=== PATIENT | male | born 1950 | race Caucasian/White ===

== ENCOUNTER → 2016-11-13 | Outpatient (CLI) | payer BC, OTHER ==
[~2016-11-13] VITALS: Ht 171.5 cm; Wt 80.8 kg
[~2016-11-13] MED LIST: AMLO-110 PO; ASPI81TA28 PO; CLC100X PO; FLM4 PO; NTRC PO; NUTR1CAP PO; RANI300T2 PO; [UNRECOGNIZED DRUG - CODE] PO
[2016-11-13 13:33] VITALS: BP 118/72; PULSE 89; Ht 171.5 cm; Wt 80.8 kg
== END | disposition home or self-care (01) ==
LOC: C.NEUR 13:23
PROVIDERS: ATTEND Internal Medicine Pulmonary Disease
DX: G47.33 Obstructive sleep apnea (adult) (pediatric) (principal); Z99.89 Dependence on other enabling machines and devices

== ENCOUNTER → 2016-11-27 | Outpatient (CLI) | payer BC ==
[2016-11-27 10:01] LABS: ESTIMATED AVERAGE GLUCOSE 120 mg/dl; HA1C FLAG Normal (Normal)
[2016-11-27 10:09] LABS: ALB/GLOB RATIO 0.9 (0.9-2); ALKALINE PHOSPHATASE 93 U/L (45-117); ALT/SGPT 44 U/L (12-78); AST/SGOT 23 U/L (15-37); BLOOD UREA NITROGEN 19 mg/dl (7-18); BUN/CREATININE RATIO 18.7 (10-20); CALCIUM 9.1 mg/dl (8.5-10.1); CARBON DIOXIDE 27 mmol/L (21-32); CHLORIDE 105 mmol/L (98-107); CHOLESTEROL 182 mg/dl (0-200); CHOLESTEROL/HDL RATIO 2.8; GLUCOSE 85 mg/dl (70-99); HDL CHOLESTEROL 64 mg/dl; LDL CHOLESTEROL CALCULATED 92 mg/dl; POTASSIUM 3.9 mmol/L (3.5-5.1); SODIUM 139 mmol/L (136-145); TRIGLYCERIDES 131 mg/dl (0-150); VERY LOW DENSITY LIPOPROT CALC 26 mg/dl
[2016-11-27 10:21] LABS: FREE PSA 0.63 ng/ml
== END | disposition home or self-care (01) ==
LOC: C.LAB1850 07:26
PROVIDERS: ATTEND Internal Medicine
DX: E78.00 Pure hypercholesterolemia, unspecified (principal); R74.8 Abnormal levels of other serum enzymes; R97.20 Elevated prostate specific antigen [PSA]; R73.9 Hyperglycemia, unspecified

== ENCOUNTER → 2017-04-30 | Outpatient (CLI) | payer BC ==
[2017-04-30 09:47] LABS: MEAN CELL VOLUME 90.7 fL (80-100); MEAN CORPUSCULAR HEMOGLOBIN 30.8 pg (25-34); MEAN PLATELET VOLUME 10.6 fL (7.4-10.4); PLATELET COUNT 221 K/uL (130-400); RED BLOOD COUNT 4.96 M/uL (4.7-6.1); WHITE BLOOD COUNT 6.14 K/uL (4.8-10.8)
[2017-04-30 10:06] LABS: ALT/SGPT 42 U/L (12-78); BLOOD UREA NITROGEN 17 mg/dl (7-18); BUN/CREATININE RATIO 17.2 (10-20); CALCIUM 8.9 mg/dl (8.5-10.1); CARBON DIOXIDE 29 mmol/L (21-32); CHLORIDE 105 mmol/L (98-107); CHOLESTEROL 192 mg/dl (0-200); GLUCOSE 87 mg/dl (70-99); POTASSIUM 3.7 mmol/L (3.5-5.1); SODIUM 138 mmol/L (136-145); TRIGLYCERIDES 128 mg/dl (0-150); VERY LOW DENSITY LIPOPROT CALC 26 mg/dl
[2017-04-30 10:09] LABS: ALB/GLOB RATIO 0.9 (0.9-2); ALKALINE PHOSPHATASE 78 U/L (45-117); AST/SGOT 27 U/L (15-37); HDL CHOLESTEROL 65 mg/dl; LDL CHOLESTEROL CALCULATED 101 mg/dl
== END | disposition home or self-care (01) ==
LOC: C.LAB1850 07:08
PROVIDERS: ATTEND Internal Medicine
DX: R74.8 Abnormal levels of other serum enzymes (principal); E78.00 Pure hypercholesterolemia, unspecified

== ENCOUNTER → 2017-10-11 | Outpatient (CLI) | payer BC ==
[2017-10-11 09:36] LABS: HEMATOCRIT 48.3 % (42-52); HEMOGLOBIN 16.6 g/dL (14.0-18.0); MEAN CELL VOLUME 90.4 fL (80-100); MEAN CORPUSCULAR HEMOGLOBIN 31.1 pg (25-34); MEAN CORPUSCULAR HGB CONC 34.4 g/dl (32-36); MEAN PLATELET VOLUME 10.3 fL (7.4-10.4); PLATELET COUNT 204 K/uL (130-400); RED CELL DISTRIBUTION WIDTH SD 43.4 fL (36.4-46.3); WHITE BLOOD COUNT 6.03 K/uL (4.8-10.8)
[2017-10-11 10:03] LABS: ALBUMIN 3.4 gm/dl (3.4-5.0); ALT/SGPT 38 U/L (12-78); BLOOD UREA NITROGEN 19 mg/dl (7-18); CALCIUM 9.4 mg/dl (8.5-10.1); CARBON DIOXIDE 27 mmol/L (21-32); CREATININE 1.01 mg/dl (0.60-1.40); GLUCOSE 89 mg/dl (70-99); POTASSIUM 3.9 mmol/L (3.5-5.1); SODIUM 137 mmol/L (136-145)
[2017-10-11 10:06] LABS: ALKALINE PHOSPHATASE 70 U/L (45-117); AST/SGOT 23 U/L (15-37); TOTAL PROTEIN 7.3 gm/dl (6.4-8.2)
== END | disposition home or self-care (01) ==
LOC: C.LAB1850 07:32
PROVIDERS: ATTEND Internal Medicine
DX: R73.9 Hyperglycemia, unspecified (principal); R74.8 Abnormal levels of other serum enzymes; R97.20 Elevated prostate specific antigen [PSA]

== ENCOUNTER → 2018-02-07 | Outpatient (CLI) | payer BC ==
[~2018-02-07] MED LIST changes: -AMLO-110 PO; +AMLO5TAB3 PO
[2018-02-07 09:35] LABS: HEMATOCRIT 46.3 % (42-52); HEMOGLOBIN 15.8 g/dL (14.0-18.0); MEAN CORPUSCULAR HGB CONC 34.1 g/dl (32-36); MEAN PLATELET VOLUME 10.6 fL (7.4-10.4); PLATELET COUNT 215 K/uL (130-400); RED CELL DISTRIBUTION WIDTH CV 13.1 % (11.5-14.5); RED CELL DISTRIBUTION WIDTH SD 43.6 fL (36.4-46.3)
[2018-02-07 09:55] LABS: ALBUMIN 3.4 gm/dl (3.4-5.0); ALKALINE PHOSPHATASE 71 U/L (45-117); ALT/SGPT 43 U/L (12-78); AST/SGOT 27 U/L (15-37); BLOOD UREA NITROGEN 18 mg/dl (7-18); CALCIUM 8.8 mg/dl (8.5-10.1); CARBON DIOXIDE 28 mmol/L (21-32); CHOLESTEROL 188 mg/dl (0-200); CREATININE 1.04 mg/dl (0.60-1.40); GLUCOSE 90 mg/dl (70-99); LDL CHOLESTEROL CALCULATED 112 mg/dl; POTASSIUM 4.1 mmol/L (3.5-5.1); SODIUM 141 mmol/L (136-145)
== END | disposition home or self-care (01) ==
LOC: C.LAB1850 07:23
PROVIDERS: ATTEND Internal Medicine
DX: E78.00 Pure hypercholesterolemia, unspecified (principal); K75.81 Nonalcoholic steatohepatitis (NASH)

== ENCOUNTER 2023-01-06 03:13 | Inpatient (IN) ==
[2023-01-06 04:01] LABS: Basophils # (auto) 0.04 K/uL (0-0.2); Basophils % (auto) 0.5 %; Eosinophils # (auto) 0.06 K/uL (0-0.50); Eosinophils % (auto) 0.8 %; Hematocrit (blood only) 43.3 % (42.0-52.0); Hemoglobin 15.2 g/dl (14.0-18.0); Immature Granulocytes # (auto) 0.02 K/uL (0.01-0.20); Immature Granulocytes % (auto) 0.3 %; Lymphocytes # (auto) 2.15 K/uL (1.2-3.4); Lymphocytes % (auto) 29.1 %; Mean Corpuscular Hemoglobin 32.1 pg (25.0-34.0); Mean Corpuscular Hgb Conc 35.1 g/dL (32.0-36.0); Mean Corpuscular Volume 91.4 fL (80.0-100.0); Mean Platelet Volume 10.4 fL (9.4-12.4); Monocytes % (auto) 8.1 %; Neutrophils # (auto) 4.53 K/uL (1.40-6.50); Neutrophils % (auto) 61.2 %; Platelet Count 232 K/uL (130-400); RDW Coefficient of Variation 12.7 % (11.5-14.5); RDW Standard Deviation 42.6 fL (36.4-46.3); Red Blood Count 4.74 M/uL (4.70-6.10)
[2023-01-06 04:05] LABS: Albumin Globulin Ratio 1.4 (0.9-2); Albumin Level 3.9 gm/dl (3.4-5.0); BUN Creatinine Ratio 38.6 (10-20); Bilirubin,Total 0.8 mg/dl (0.2-1.0); Calcium 9.5 mg/dl (8.6-10.3); Creatinine Clr Calc Pharmacy 53.2 ml/min; Globulin 2.8 gm/dl (2.5-4.0); Magnesium 1.8 mg/dl (1.7-2.4); Potassium 4.2 mmol/L (3.5-5.1); Total Protein 6.7 gm/dl (6.0-8.3)
--- NOTE | 2023-01-06 04:05 | Emergency Department Note ---
Impression & Plan Lightheadedness, Syncope, CHI (closed head injury), Fracture closed, nasal bone, Premature ventricular contractions (PVCs) (VPCs) ED Provider Note ED Provider Note NAME: FLORY SCHAFER AGE:72 SEX: Male : 1950 ARRIVES VIA: EMS INFORMANT: Patient ED PROVIDER(s): Annalisa Silverio DO CHIEF COMPLAINT: Lightheadedness HPI: This is a 72-year-old male presents emerged department via EMS after several episodes of lightheadedness while at home. Patient states he was slightly lightheaded this evening with a heaviness to his arms and legs after walking. He states he went to bed and got up to use the restroom and felt lig htheaded when he got up. He states he was going back into bed after urinating and felt very lightheaded again and fell against the wall injuring his face. He does believe he broke his nose. He states there was a lot of blood from this and he took some time to clean it up. After that he still felt lightheaded trying to go back into bed. When he tried to get up again he felt persistently lightheaded and felt he should come in for evaluation so he woke up his and called 911. Patient states even when 911 arrived he was still having episodes of lightheadedness and had a very brief LOC with 1 episode although stated he did not fall. He denies any preceding or accompanying chest pain, palpitations, shortness of breath, nausea, headaches, vision changes, or paresthesias. Patient states he was recently seen and evaluated here for indigestion and was told he may have a duodenal ulcer. He states he has follow-up scheduled with GI next week. He states it was thought to be related to his recent use of naproxen for an ongoing shoulder issue. He states he has not had any naproxen since Sunday when he was evaluated. He denies any change in urine or stools. PAST MEDICAL HISTORY:See Below PAST SURGICAL HISTORY:See Below FAMILY HISTORY:See Below SOCIAL HISTORY:See Below HOME MEDICATIONS:See Below ALLERGIES:See Below VITALS:See Below PHYSICAL EXAMINATION: GENERAL: alert, well appearing, well nourished, no distress, non-toxic EYE EXAM: normal conjunctiva, PERRL and EOM's grossly intact OROPHARYNX: no exudate, no erythema, lips, buccal mucosa, and tongue normal and mucous membranes are dry NECK: supple, no nuchal rigidity, no adenopathy, non-tender LUNGS: Clear to auscultation. Normal chest wall mechanics, no w/r/r HEART: no murmurs, S1 normal and S2 normal ABDOMEN: abdomen soft, non-tender, normo-active bowel sounds, no masses, no rebound or guarding. BACK: Back is symmetrical on inspection and there is no deformity, no midline tenderness, no CVA tenderness. SKIN: no rashes, petechiae, orbruising UPPER EXTREMITIES: upper extremities are grossly normal. FROM, nml pulses b/l. LOWER EXTREMITIES: No pitting edema. FROM, nml pulses b/l. NEURO EXAM: Normal sensorium, cranial nerves II-XII grossly intact, normal speech, no facial droop,nogross weakness of arms, no gross weakness of legs. Gross sensation intact. No ataxia. Vital Signs: reviewed and remarkable Differential Diagnosis: Vasovagal syncope, hypovolemia, BRIDGET, dysrhythmia, electrolyte abnormality, ACS, occult infection, CVA, ICH, as well as others were considered MEDICAL DECISION MAKING: THis is a 72 yo male who presents to the ER after recurrent episodes of lightheadedness at home and a syncopal event. VS stable and patient afebrile. Labs drawn and sent, IV established, EKG and CXR performed and interpreted at bedside, and patient placed on telemetry. Patient with frequent PVC's on tele. IVF started due to concern for dehydration. Patient sent for CT imaging given concern for neurologic etiology as well as reported head trauma. Labs and imaging reassuring. Patient was still orthostatic on check after 1 L IVF. No prior cardiac hx. Neuro exam otherwise normal and nonfocal. In discussing recent evaluation and dx of duodenitis here thought to be related to NSAID use, today's H/H 2 gm/dL lower than <24 hr ago. A protonix drip was added to the initial bolus he was given and a repeat H/H added. He denied black/bloody stools and no use of anticoagulation. DUe to concern for persistent symptoms, advanced age, case discussed with the hospitalist for additional evaluatio n/treatment. Per their request, case also discussed with [facility]. Consultation(s): 814: Discussed with Dr. Meza. He requested repeat H/H and repeat troponin and that GI be consulted additionally. 0928: Discussed with Dr. Pritchett. ER Treatment Provided: See below Diagnostics Interpreted By Me: -ECG: Normal sinus at 78, normal axis, normal intervals, PVCs noted, ST depression noted in V5 and V6, no other ST or T wave changes -Cardiac Monitoring: An order was placed for continuous cardiac monitoring. The monitor shows a rate of 70 with normal sinus rhythm. -Laboratory studies: As stated above and show below. -Imaging studies: X-ray Chest: A single view study of the chest was reviewed and was negative for cardiomegaly, focal infiltrate, effusion, pulmonary edema, or wide mediastinum. Triage Nursing Note Reviewed Prior/Outside Records Reviewed Procedures: [] Critical Care: Critical care of 44 min performed to assess and manage high likelihood of life- threatening syncope, involving labs and imaging performed with assessment to evaluate syncope diagnosis] with frequent reassessment. This time includes bedside time, treatment discussions with patient/family/consultants, documentation time and excludes procedure time. Past Med/Surg History Medical History Anxiety BPH (benign prostatic hyperplasia) BPH with obstruction/lower urinary tract symptoms Elevated serum GGT level per pt Gallstones History of colon polyps Hypertension Neck pain HX STIFFNESS TO LEFT SIDE Osteoarthritis Pancreatitis hx of Sleep apnea cpap Surgical History History of cholecystectomy History of colonoscopy History of prostate biopsy x2--benign History of tonsillectomy and adenoidectomy History of tooth extraction History of wisdom tooth extraction Family History Grandmother (Maternal) Family history of diabetes mellitus Aunt Family history of diabetes mellitus Family/Other Cancer Hypertension Father Prostate cancer Other No family history of adverse response to anesthesia Social History Smoking Status: Never smoker Second Hand Exposure: No; Do You Dip or Chew Tobacco: No; Hx Alcohol Use: Yes Alcohol type: wine Hx Substance Use: No Preferred Language: Burkinan Communication Ability: Effective Mounter Saxophones Required: No Beliefs That Will Affect Care: None marital status: Current Living Situation: Spouse current occupational status: retired Other Information That Helps Us Care for You: No Feels Safe at Home: Yes Safety Concerns: Feels Safe At This Time Childhood Exposure to Second-Hand Smoke: Yes Dental Care, Regularly: Yes Physical Activity Frequency: Daily Seatbelt Use: always Sunscreen Use: Yes Assistive Devices: CPAP and Glasses Allergies Allergies Allergy/AdvReac Type Severity Reaction Status Date / Time No Known Allergies Allergy Verified 12/14/22 09:51 Home Meds Home Medications Medication Instructions Recorded Confirmed aspirin 81 mg tablet,delayed 81 mg PO HS 12/25/18 01/06/23 release coenzyme Q10 100 mg capsule 100 mg PO BID 12/25/18 01/06/23 docusate sodium 100 mg capsule 200 mg PO HS 12/25/18 01/06/23 omega-3 acid ethyl esters 1 gram 1 g PO BID 12/25/18 01/06/23 capsule loratadine 10 mg tablet (Claritin) 10 mg PO DAILY PRN sinus issues 12/26/18 01/06/23 psyllium husk 0.52 gram capsule 2.6 g PO HS 12/26/18 01/06/23 (Fiber-Caps (psyllium husk)) cholecalciferol (vitamin D3) 125 125 mcg PO QAM 12/13/21 01/06/23 mcg (5,000 unit) capsule Previous Rx's Medication Instructions Recorded CPAP Machine #1 ea 03/13/20 lorazepam 0.5 mg tablet 0.5 - 1 mg PO BID PRN Anxiety #30 02/22/22 tabs amlodipine 2.5 mg tablet 2.5 mg PO QAM #90 tabs 12/05/22 dutasteride 0.5 mg capsule 0.5 mg PO DAILY #90 caps 12/05/22 tamsulosin 0.4 mg capsule 0.4 mg PO DAILY #90 caps 12/14/22 Results & Data (ED) Vital Signs Vital Signs - 24 hr 01/06/23 03:21 01/06/23 03:28 01/06/23 03:30 Temperature 37.0 C Temperature Source Oral Pulse Rate - Lying Pulse Rate - Sitting Pulse Rate - Standing Pulse Rate 68 71 68 Pulse Rate [Left Finger] Pulse Rate from SpO2 Sensor 63 Respiratory Rate 18 18 Blood Pressure - Lying Blood Pressure - Sitting Blood Pressure- Standing Blood Pressure 124/76 124/76 Blood Pressure [Left Arm] Blood Pressure Mean 92 92 Blood Pressure Mean [Left Arm] Pulse Oximetry 100 100 Oxygen Delivery Method Room Air Sepsis Recent Fever Within 48 Hours No Sepsis New/Unexplained Change in Mental Status No Sepsis Action Taken by Nursing No Action Required 01/06/23 04:00 01/06/23 04:33 01/06/23 04:49 Temperature Temperature Source Pulse Rate - Lying Pulse Rate - Sitting Pulse Rate - Standing Pulse Rate 71 68 67 Pulse Rate [Left Finger] Pulse Rate from SpO2 Sensor 63 62 62 Respiratory Rate 16 18 20 Blood Pressure - Lying Blood Pressure - Sitting Blood Pressure- Standing Blood Pressure 128/66 133/73 Blood Pressure [Left Arm] Blood Pressure Mean 86 93 Blood Pressure Mean [Left Arm] Pulse Oximetry 95 96 98 Oxygen Delivery Method Sepsis Recent Fever Within 48 Hours Sepsis New/Unexplained Change in Mental Status Sepsis Action Taken by Nursing 01/06/23 05:00 01/06/23 05:00 01/06/23 05:30 Temperature Temperature Source Pulse Rate - Lying Pulse Rate - Sitting Pulse Rate - Standing Pulse Rate 64 68 Pulse Rate [Left Finger] Pulse Rate from SpO2 Sensor 59 L 62 Respiratory Rate 19 22 Blood Pressure - Lying Blood Pressure - Sitting Blood Pressure- Standing Blood Pressure 128/61 131/65 Blood Pressure [Left Arm] Blood Pressure Mean 83 87 Blood Pressure Mean [Left Arm] Pulse Oximetry 94 93 Oxygen Delivery Method Sepsis Recent Fever Within 48 Hours Sepsis New/Unexplained Change in Mental Status Sepsis Action Taken by Nursing 01/06/23 06:00 01/06/23 06:48 01/06/23 06:30 Temperature Temperature Source Pulse Rate - Lying 69 Pulse Rate - Sitting 71 Pulse Rate - Standing 78 Pulse Rate 71 Pulse Rate [Left Finger] Pulse Rate from SpO2 Sensor 58 L Respiratory Rate 24 Blood Pressure - Lying 130/74 Blood Pressure - Sitting 132/66 Blood Pressure- Standing 86/52 L Blood Pressure 135/63 134/75 Blood Pressure [Left Arm] Blood Pressure Mean 87 94 Blood Pressure Mean [Left Arm] Pulse Oximetry 93 Oxygen Delivery Method Sepsis Recent Fever Within 48 Hours Sepsis New/Unexplained Change in Mental Status Sepsis Action Taken by Nursing 01/06/23 06:30 01/06/23 06:32 01/06/23 06:32 Temperature Temperature Source Pulse Rate - Lying Pulse Rate - Sitting Pulse Rate - Standing Pulse Rate 68 72 Pulse Rate [Left Finger] Pulse Rate from SpO2 Sensor 61 62 Respiratory Rate 23 15 Blood Pressure - Lying Blood Pressure - Sitting Blood Pressure- Standing Blood Pressure 130/74 Blood Pressure [Left Arm] Blood Pressure Mean 92 Blood Pressure Mean [Left Arm] Pulse Oximetry 95 96 Oxygen Delivery Method Sepsis Recent Fever Within 48 Hours Sepsis New/Unexplained Change in Mental Status Sepsis Action Taken by Nursing 01/06/23 06:33 01/06/23 06:34 01/06/23 06:58 Temperature Temperature Source Pulse Rate - Lying Pulse Rate - Sitting Pulse Rate - Standing Pulse Rate 68 75 Pulse Rate [Left Finger] 78 Pulse Rate from SpO2 Sensor 63 Respiratory Rate 20 18 20 Blood Pressure - Lying Blood Pressure - Sitting Blood Pressure- Standing Blood Pressure 132/66 86/52 L Blood Pressure [Left Arm] 153/75 H Blood Pressure Mean 88 63 Blood Pressure Mean [Left Arm] 101 Pulse Oximetry 96 95 Oxygen Delivery Method Room Air Sepsis Recent Fever Within 48 Hours Sepsis New/Unexplained Change in Mental Status Sepsis Action Taken by Nursing 01/06/23 07:17 01/06/23 06:53 01/06/23 06:53 Temperature Temperature Source Pulse Rate - Lying Pulse Rate - Sitting Pulse Rate - Standing Pulse Rate 69 71 Pulse Rate [Left Finger] Pulse Rate from SpO2 Sensor 62 Respiratory Rate 20 Blood Pressure - Lying Blood Pressure - Sitting Blood Pressure- Standing Blood Pressure 153/73 H Blood Pressure [Left Arm] Blood Pressure Mean 99 Blood Pressure Mean [Left Arm] Pulse Oximetry 96 Oxygen Delivery Method Sepsis Recent Fever Within 48 Hours Sepsis New/Unexplained Change in Mental Status Sepsis Action Taken by Nursing 01/06/23 07:00 01/06/23 07:00 01/06/23 07:30 Temperature Temperature Source Pulse Rate - Lying Pulse Rate - Sitting Pulse Rate - Standing Pulse Rate 66 Pulse Rate [Left Finger] Pulse Rate from SpO2 Sensor 59 L Respiratory Rate 17 Blood Pressure - Lying Blood Pressure - Sitting Blood Pressure- Standing Blood Pressure 166/66 H 138/67 Blood Pressure [Left Arm] Blood Pressure Mean 99 90 Blood Pressure Mean [Left Arm] Pulse Oximetry 95 Oxygen Delivery Method Sepsis Recent Fever Within 48 Hours Sepsis New/Unexplained Change in Mental Status Sepsis Action Taken by Nursing 01/06/23 07:30 01/06/23 08:00 01/06/23 08:00 Temperature Temperature Source Pulse Rate - Lying Pulse Rate - Sitting Pulse Rate - Standing Pulse Rate 67 70 Pulse Rate [Left Finger] Pulse Rate from SpO2 Sensor 71 71 Respiratory Rate 22 16 Blood Pressure - Lying Blood Pressure - Sitting Blood Pressure- Standing Blood Pressure 136/81 Blood Pressure [Left Arm] Blood Pressure Mean 99 Blood Pressure Mean [Left Arm] Pulse Oximetry 94 97 Oxygen Delivery Method Sepsis Recent Fever Within 48 Hours Sepsis New/Unexplained Change in Mental Status Sepsis Action Taken by Nursing Laboratory Data 01/06/23 03:25 01/06/23 03:25 Lab Results 01/06/23 01/06/23 01/06/23 Range/Units 03:25 03:25 03:25 WBC 7.40 (4.8-10.8) K/ul RBC 4.74 (4.70-6.10) M/uL Hgb 15.2 (14.0-18.0) g/dl Hct 43.3 (42.0-52.0) % MCV 91.4 (80.0-100.0) fL MCH 32.1 (25.0-34.0) pg MCHC 35.1 (32.0-36.0) g/dL RDW Std Deviation 42.6 (36.4-46.3) fL RDW Coeff of Lynne 12.7 (11.5-14.5) % Plt Count 232 (130-400) K/uL MPV 10.4 (9.4-12.4) fL Immature Gran % (Auto) 0.3 % Neut % (Auto) 61.2 % Lymph % (Auto) 29.1 % Ada % (Auto) 8.1 % Eos % (Auto) 0.8 % Baso % (Auto) 0.5 % Neut # (Auto) 4.53 (1.40-6.50) K/uL Lymph # (Auto) 2.15 (1.2-3.4) K/uL Ada # (Auto) 0.60 H (0.11-0.59) K/uL Eos # (Auto) 0.06 (0-0.50) K/uL Baso # (Auto) 0.04 (0-0.2) K/uL Immature Gran # (Auto) 0.02 (0.01-0.20) K/uL Sodium 136 (136-145) mmol/L Potassium 4.2 (3.5-5.1) mmol/L Chloride 105 (98-107) mmol/L Carbon Dioxide 22 (21-32) mmol/L Anion Gap 9 (3-11) BUN 44 H (6-23) mg/dl Creatinine 1.14 (0.6-1.4) mg/dl Est Cr Clr Drug Dosing 53.2 ml/min Est GFR ( Amer) 73.0 ml/min Est GFR (Non-Af Amer) 63.0 ml/min BUN/Creatinine Ratio 38.6 H (10-20) Glucose 133 H (70-99(Fasting)) mg/dl Calcium 9.5 (8.6-10.3) mg/dl Magnesium 1.8 (1.7-2.4) mg/dl Total Bilirubin 0.8 (0.2-1.0) mg/dl AST 14 (13-39) U/L ALT 13 (7-52) U/L Alkaline Phosphatase 46 (34-104) U/L Troponin I High Sens 17.2 D (0-20) pg/ml Total Protein 6.7 (6.0-8.3) gm/dl Albumin 3.9 (3.4-5.0) gm/dl Globulin 2.8 (2.5-4.0) gm/dl Albumin/Globulin Ratio 1.4 (0.9-2) TSH 4.503 H (0.300-4.500) uIu/ml Free T4 1.01 (0.61-1.60) ng/dl Lyme Disease IgG Ab (Negative) Lyme Disease IgM Ab (Negative) 01/06/23 Range/Units 03:25 WBC (4.8-10.8) K/ul RBC (4.70-6.10) M/uL Hgb (14.0-18.0) g/dl Hct (42.0-52.0) % MCV (80.0-100.0) fL MCH (25.0-34.0) pg MCHC (32.0-36.0) g/dL RDW Std Deviation (36.4-46.3) fL RDW Coeff of Lynne (11.5-14.5) % Plt Count (130-400) K/uL MPV (9.4-12.4) fL Immature Gran % (Auto) % Neut % (Auto) % Lymph % (Auto) % Ada % (Auto) % Eos % (Auto) % Baso % (Auto) % Neut # (Auto) (1.40-6.50) K/uL Lymph # (Auto) (1.2-3.4) K/uL Ada # (Auto) (0.11-0.59) K/uL Eos # (Auto) (0-0.50) K/uL Baso # (Auto) (0-0.2) K/uL Immature Gran # (Auto) (0.01-0.20) K/uL Sodium (136-145) mmol/L Potassium (3.5-5.1) mmol/L Chloride (98-107) mmol/L Carbon Dioxide (21-32) mmol/L Anion Gap (3-11) BUN (6-23) mg/dl Creatinine (0.6-1.4) mg/dl Est Cr Clr Drug Dosing ml/min Est GFR ( Amer) ml/min Est GFR (Non-Af Amer) ml/min BUN/Creatinine Ratio (10-20) Glucose (70-99(Fasting)) mg/dl Calcium (8.6-10.3) mg/dl Magnesium (1.7-2.4) mg/dl Total Bilirubin (0.2-1.0) mg/dl AST (13-39) U/L ALT (7-52) U/L Alkaline Phosphatase (34-104) U/L Troponin I High Sens (0-20) pg/ml Total Protein (6.0-8.3) gm/dl Albumin (3.4-5.0) gm/dl Globulin (2.5-4.0) gm/dl Albumin/Globulin Ratio (0.9-2) TSH (0.300-4.500) uIu/ml Free T4 (0.61-1.60) ng/dl Lyme Disease IgG Ab Negative (Negative) Lyme Disease IgM Ab Negative (Negative) Administered Medications Sodium Chloride (Nss 1000ml) 1,000 mls @ 125 mls/hr IV .Q8H ELIZABETH Stop: 02/05/23 03:44 Last Admin: 01/06/23 20:35 Dose: 125 mls/hr Documented By: Infusion: 01/06/23 20:30 Dose: 125 mls/hr Documented By: Admin: 01/06/23 14:00 Dose: 125 mls/hr Documented By: Infusion: 01/06/23 14:00 Dose: 125 mls/hr Documented By: Infusion: 01/06/23 11:07 Dose: 125 mls/hr Documented By: Infusion: 01/06/23 06:54 Dose: 0 mls/hr Documented By: Admin: 01/06/23 04:08 Dose: 125 mls/hr Documented By: VILMA Pantoprazole Sodium 40 mg/ (Dextrose) 100 mls @ 20 mls/hr IV Q5H ELIZABETH Stop: 02/05/23 15:59 Last Admin: 01/06/23 21:20 Dose: 8 mg/hr, 20 mls/hr Documented By: Infusion: 01/06/23 20:57 Dose: 8 mg/hr, 20 mls/hr Documented By: Admin: 01/06/23 15:57 Dose: 8 mg/hr, 20 mls/hr Documented By: CLEO Discontinued Medications Sodium Chloride (Nss) 500 mls @ 999 mls/hr IV .Q31M ONE Stop: 01/06/23 07:23 Last Infusion: 01/06/23 07:31 Dose: 0 mls/hr Documented By: Admin: 01/06/23 07:00 Dose: 999 mls/hr Documented By: TAVARES Pantoprazole Sodium 40 mg/ (Syringe) 10 mls @ 5 mls/min IV NOW ONE Stop: 01/06/23 06:54 Last Admin: 01/06/23 07:32 Dose: 5 mls/min Documented By: TAVARES Pantoprazole Sodium 40 mg/ (Dextrose) 100 mls @ 20 mls/hr IV Q5H [facility] Stop: 01/06/23 15:59 Last Admin: 01/06/23 15:58 Dose: Not Given Documented By: Infusion: 01/06/23 15:57 Dose: 0 mg/hr, 0 mls/hr Documented By: Admin: 01/06/23 11:08 Dose: 8 mg/hr, 20 mls/hr Documented By: LISSY Ioversol (Optiray 320 125ml) 120 ml IV ONCE ONE Stop: 01/06/23 04:25 Last Admin: 01/06/23 04:25 Dose: 120 ml Documented By: AW Imaging Data Radiologist's Impression: Chest X-Ray 01/06/23 03:43 SINGLE VIEW CHEST CLINICAL HISTORY: Syncope FINDINGS: An AP, portable, upright chest radiograph is compared to study dated 06/27/2018. The heart is enlarged note atherosclerotic calcification of the thoracic aorta. The pulmonary vasculature is nondistended congested. Chronic interstitial thickening is similar to previous. The lungs and pleural spaces are clear. No pneumothorax is seen. The skeletal structures are osteopenic. The bony thorax is grossly intact. IMPRESSION: Cardiomegaly with no active disease in the chest. ACT 112: Negative or not required by law. Electronically signed by: Sachin Whitmore M.D. 01/06/2023 8:[address] 01/06/23 03:43 Exam(s): CT FACIAL Without Contrast EXAM: CT Maxillofacial Without Intravenous Contrast CLINICAL HISTORY: Reason for exam: trauma. TECHNIQUE: Axial computed tomography images of the face without intravenous contrast. Automated exposure control was utilized for the study. A dose lowering technique was utilized adhering to the principles of ALARA. COMPARISON: No relevant prior studies available. FINDINGS: Bones/joints: No acute fracture. Chronic appearing nondisplaced nasal bone fracture on the left. Normal variant torus mandibularis. Soft tissues: Unremarkable. Orbits: Unremarkable. Sinuses: Unremarkable. No air-fluid levels. Dental: Streak artifact from dental amalgam limits evaluation of the adjacent structures. IMPRESSION: No acute facial bone fracture. Chronic appearing nondisplaced nasal bone fracture on the left. Electronically signed by: Gamal Merritt M.D. 01/06/23 07:[address] 01/06/23 03:[address] OF THE BRAIN; CT ANGIOGRAM OF THE BRAIN; CT ANGIOGRAM OF THE NECK CLINICAL HISTORY: Syncope. COMPARISON STUDY: No priors. TECHNIQUE: Unenhanced axial CT scan of the brain is performed. Subsequently, following the IV administration of 120 of Optiray 320, CT angiogram of the head and neck was performed from the aortic arch to the vertex. Images are reviewed in the axial, sagittal, and coronal planes. 3-D MIPS images are created and assessed. IV contrast was administered without complication. All measurements were calculated based on NASCET criteria. A dose lowering technique was utilized adhering to the principles of ALARA. FINDINGS: Brain parenchyma: There is age-related involutional change noting minimal john roangiopathic disease. There is no hemorrhage, mass effect, or evidence of acute territorial ischemia by CT criteria. There is no evidence of enhancing mass lesion on the angiogram phase images. The ventricles, sulci, and cisterns are prominent secondary to involutional change. Billings-white matter differentiation is preserved. No extra-axial fluid collection is seen. Thoracic aorta: There is mild atherosclerotic calcification of the thoracic aorta. Visualized portions of the thoracic aorta are normal in caliber. The aortic arch demonstrates standard 3-vessel anatomy. Right carotid arterial system: The right common carotid artery is widely patent, as are the right internal and external carotid arteries. Calcified plaque is seen in the carotid bulb. Left carotid arterial system: The left common carotid artery is widely patent, as are the left internal and external carotid arteries. Calcified plaque is noted in the carotid bulb. Vertebral arteries: The vertebral arteries are widely patent bilaterally noting mild right-sided dominance. Subclavian arteries: Widely patent bilaterally. Intracranial vasculature: There is atherosclerotic calcification of the cavernous carotid and vertebral arteries. The internal carotid arteries are pa tent at the skull base, as are the anterior and middle cerebral arteries bilaterally. The vertebrobasilar system and posterior cerebral arteries are widely patent. The right vertebral artery is slightly dominant. There is no aneurysm, high-grade stenosis, or focal vessel cut off seen throughout the intracranial circulation. Jugular veins: Patent bilaterally. Dural sinuses: Patent. Lung apices: Partially visualized upper lobe lung parenchyma appears clear. Soft tissues: The visualized pharyngeal soft tissues are normal in appearance noting angiographic phase technique. The oropharyngeal airway appears widely patent. The salivary and thyroid glands are normal in appearance. No cervical lymphadenopathy is seen. Skeletal structures: The skeletal structures are osteopenic. The calvarium appears intact. The cervical spine is maintained noting multilevel spondylosis. There are bilateral nasal bone fractures. Orbits: The bony orbits are intact. Orbital contents are normal as visualized. Sinuses and mastoids: The paranasal sinuses are clear. The mastoid air cells are well pneumatized. IMPRESSION: 1. There is no hemorrhage, mass effect, or evidence of acute territorial ischemia by CT criteria. 2. Unremarkable CT angiogram of the brain. 3. Unremarkable CT angiogram of the neck. 4. Bilateral nasal bone fractures. ACT 112: Negative or not required by law. Electronically signed by: Sachin Whitmore M.D. 01/06/2023 7:32 AM Head CTA 01/06/23 03:[address] OF THE BRAIN; CT ANGIOGRAM OF THE BRAIN; CT ANGIOGRAM OF THE NECK CLINICAL HISTORY: Syncope. COMPARISON STUDY: No priors. TECHNIQUE: Unenhanced axial CT scan of the brain is performed. Subsequently, following the IV administration of 120 of Optiray 320, CT angiogram of the head and neck was performed from the aortic arch to the vertex. Images are reviewed in the axial, sagittal, and coronal planes. 3-D MIPS images are created and assessed. IV contrast was administered without complication. All measurements were calculated based on NASCET criteria. A dose lowering technique was utilized adhering to the principles of ALARA. FINDINGS: Brain parenchyma: There is age-related involutional change noting minimal microangiopathic disease. There is no hemorrhage, mass effect, or evidence of acute territorial ischemia by CT criteria. There is no evidence of enhancing mass lesion on the angiogram phase images. The ventricles, sulci, and cisterns are prominent secondary to involutional change. Billings-white matter differentiation is preserved. No extra-axial fluid collection is seen. Thoracic aorta: There is mild atherosclerotic calcification of the thoracic aorta. Visualized portions of the thoracic aorta are normal in caliber. The aortic arch demonstrates standard 3-vessel anatomy. Right carotid arterial system: The right common carotid artery is widely patent, as are the right internal and external carotid arteries. Calcified plaque is see n in the carotid bulb. Left carotid arterial system: The left common carotid artery is widely patent, as are the left internal and external carotid arteries. Calcified plaque is noted in the carotid bulb. Vertebral arteries: The vertebral arteries are widely patent bilaterally noting mild right-sided dominance. Subclavian arteries: Widely patent bilaterally. Intracranial vasculature: There is atherosclerotic calcification of the cavernous carotid and vertebral arteries. The internal carotid arteries are patent at the skull base, as are the anterior and middle cerebral arteries bilaterally. The vertebrobasilar system and posterior cerebral arteries are widely patent. The right vertebral artery is slightly dominant. There is no aneurysm, high-grade stenosis, or focal vessel cut off seen throughout the intracranial circulation. Jugular veins: Patent bilaterally. Dural sinuses: Patent. Lung apices: Partially visualized upper lobe lung parenchyma appears clear. Soft tissues: The visualized pharyngeal soft tissues are normal in appearance noting angiographic phase technique. The oropharyngeal airway appears widely patent. The salivary and thyroid glands are normal in appearance. No cervical lymphadenopathy is seen. Skeletal structures: The skeletal structures are osteopenic. The calvarium appears intact. The cervical spine is maintained noting multilevel spondylosis. There are bilateral nasal bone fractures. Orbits: The bony orbits are intact. Orbital contents are normal as visualized. Sinuses and mastoids: The paranasal sinuses are clear. The mastoid air cells are well pneumatized. IMPRESSION: 1. There is no hemorrhage, mass effect, or evidence of acute territorial ischemia by CT criteria. 2. Unremarkable CT angiogram of the brain. 3. Unremarkable CT angiogram of the neck. 4. Bilateral nasal bone fractures. ACT 112: Negative or not required by law. Electronically signed by: Sachin Whitmore M.D. 01/06/2023 7:32 AM Neck CTA 01/06/23 03:[address] OF THE BRAIN; CT ANGIOGRAM OF THE BRAIN; CT ANGIOGRAM OF THE NECK CLINICAL HISTORY: Syncope. COMPARISON STUDY: No priors. TECHNIQUE: Unenhanced axial CT scan of the brain is performed. Subsequently, following the IV administration of 120 of Optiray 320, CT angiogram of the head and neck was performed from the aortic arch to the vertex. Images are reviewed in the axial, sagittal, and coronal planes. 3-D MIPS images are created and assessed. IV contrast was administered without complication. All measurements were calculated based on NASCET criteria. A dose lowering technique was utilized adhering to the principles of ALARA. FINDINGS: Brain parenchyma: There is age-related involutional change noting minimal microangiopathic disease. There is no hemorrhage, mass effect, or evidence of acute territorial ischemia by CT criteria. There is no evidence of enhancing mass lesion on the angiogram phase images. The ventricles, sulci, and cisterns are prominent secondary to involutional change. Billings-white matter differentiation is preserved. No extra-axial fluid collection is seen. Thoracic aorta: There is mild atherosclerotic calcification of the thoracic aorta. Visualized portions of the thoracic aorta are normal in caliber. The aortic arch demonstrates standard 3-vessel anatomy. Right carotid arterial system: The right common carotid artery is widely patent, as are the right internal and external carotid arteries. Calcified plaque is seen in the carotid bulb. Left carotid arterial system: The left common carotid artery is widely patent, as are the left internal and external carotid arteries. Calcified plaque is noted in the carotid bulb. Vertebral arteries: The vertebral arteries are widely patent bilaterally noting mild right-sided dominance. Subclavian arteries: Widely patent bilaterally. Intracranial vasculature: There is atherosclerotic calcification of the cavernous carotid and vertebral arteries. The internal carotid arteries are patent at the skull base, as are the anterior and middle cerebral arteries bilaterally. The vertebrobasilar system and posterior cerebral arteries are widely patent. The right vertebral artery is slightly dominant. There is no aneurysm, high-grade stenosis, or focal vessel cut off seen throughout the intracranial circulation. Jugular veins: Patent bilaterally. Dural sinuses: Patent. Lung apices: Partially visualized upper lobe lung parenchyma appears clear. Soft tissues: The visualized pharyngeal soft tissues are normal in appearance noting angiographic phase technique. The oropharyngeal airway appears widely patent. The salivary and thyroid glands are normal in appearance. No cervical lymphadenopathy is seen. Skeletal structures: The skeletal structures are osteopenic. The calvarium appears intact. The cervical spine is maintained noting multilevel spondylosis. There are bilateral nasal bone fractures. Orbits: The bony orbits are intact. Orbital contents are normal as visualized. Sinuses and mastoids: The paranasal sinuses are clear. The mastoid air cells are well pneumatized. IMPRESSION: 1. There is no hemorrhage, mass effect, or evidence of acute territorial ischemia by CT criteria. 2. Unremarkable CT angiogram of the brain. 3. Unremarkable CT angiogram of the neck. 4. Bilateral nasal bone fractures. ACT 112: Negative or not required by law. Electronically signed by: Sachin Whitmore M.D. 01/06/2023 7:32 AM Discharge Plan Visit Data Chief Complaint: Syncope (Near Syncope) Stated Complaint: Dizziness, Fall, Nose Injury ED Provider: Annalisa Silverio Discharge Problem: Lightheadedness, Syncope, CHI (closed head injury), Fracture closed, nasal bone, Premature ventricular contractions (PVCs) (VPCs) Patient Disposition: Admitted As Inpatient Discharge Instructions Interventions: ED Discharge Assessment Last Done: 01/06/23 12:53
[2023-01-06] MEDS: SODIUM CHLORIDE 0.9% 1000ML 1,000 ML IV SCH ×3 (04:08→20:35)
[2023-01-06 04:13] LABS: Troponin I High Sensitivity 17.2 pg/ml (0-20)
[2023-01-06] MEDS ORDERED: OPTIRAY 320 125ml IV ONE (04:24)
[2023-01-06 04:30] LABS: Thyroid Stimulating Hormone 4.503 uIu/ml (0.300-4.500)
[2023-01-06 04:35] LABS: Lyme Ab IgG w/WB Rflx Negative (Negative); Lyme Ab IgM w/WB Rflx Negative (Negative)
[2023-01-06 05:06] LABS: T4 Free Thyroxine 1.01 ng/dl (0.61-1.60)
[2023-01-06] MEDS ORDERED: SODIUM CHLORIDE 0.9% 500 ML IV ONE (06:53)
[2023-01-06] MEDS ORDERED: PANTOprazole 40 MG in SYRINGE 0 ML IV ONE (06:53)
[2023-01-06 06:59] LABS: Appearance Urine Clear (Clear); Bilirubin Urine Negative (Negative); Blood Urine Negative (Negative); Color Urine Yellow; Glucose Urine UA Negative (Negative); Ketones Urine Trace (Negative); Leukocyte Esterase Urine Negative (Negative); Nitrite Urine Negative (Negative); Protein Urine Negative (Negative); Specific Gravity Urine > 1.045 (1.000-1.030); Urobilinogen Urine Negative (Negative)
--- NOTE | 2023-01-06 07:34 | CT Scan Report ---
UNENHANCED CT OF THE BRAIN; CT ANGIOGRAM OF THE BRAIN; CT ANGIOGRAM OF THE NECK CLINICAL HISTORY: Syncope. COMPARISON STUDY: No priors. TECHNIQUE: Unenhanced axial CT scan of the brain is performed. Subsequently, following the IV adminis tration of 120 of Optiray 320, CT angiogram of the head and neck was performed from the aortic arch t o the vertex. Images are reviewed in the axial, sagittal, and coronal planes. 3-D MIPS images are cre ated and assessed. IV contrast was administered without complication. All measurements were calculate d based on NASCET criteria. A dose lowering technique was utilized adhering to the principles of ALA RA. FINDINGS: Brain parenchyma: There is age-related involutional change noting minimal microangiopathic disease. T here is no hemorrhage, mass effect, or evidence of acute territorial ischemia by CT criteria. There i s no evidence of enhancing mass lesion on the angiogram phase images. The ventricles, sulci, and cist erns are prominent secondary to involutional change. Billings-white matter differentiation is preserved. No extra-axial fluid collection is seen. Thoracic aorta: There is mild atherosclerotic calcification of the thoracic aorta. Visualized portion s of the thoracic aorta are normal in caliber. The aortic arch demonstrates standard 3-vessel anatomy . Right carotid arterial system: The right common carotid artery is widely patent, as are the right int ernal and external carotid arteries. Calcified plaque is seen in the carotid bulb. Left carotid arterial system: The left common carotid artery is widely patent, as are the left information technology internship al and external carotid arteries. Calcified plaque is noted in the carotid bulb. Vertebral arteries: The vertebral arteries are widely patent bilaterally noting mild right-sided [place]. Subclavian arteries: Widely patent bilaterally. Intracranial vasculature: There is atherosclerotic calcification of the cavernous carotid and vertebr al arteries. The internal carotid arteries are patent at the skull base, as are the anterior and midd le cerebral arteries bilaterally. The vertebrobasilar system and posterior cerebral arteries are wide ly patent. The right vertebral artery is slightly dominant. There is no aneurysm, high-grade stenosis , or focal vessel cut off seen throughout the intracranial circulation. Jugular veins: Patent bilaterally. Dural sinuses: Patent. Lung apices: Partially visualized upper lobe lung parenchyma appears clear. Soft tissues: The visualized pharyngeal soft tissues are normal in appearance noting angiographic pha se technique. The oropharyngeal airway appears widely patent. The salivary and thyroid glands are nor mal in appearance. No cervical lymphadenopathy is seen. Skeletal structures: The skeletal structures are osteopenic. The calvarium appears intact. The cervic al spine is maintained noting multilevel spondylosis. There are bilateral nasal bone fractures. Orbits: The bony orbits are intact. Orbital contents are normal as visualized. Sinuses and mastoids: The paranasal sinuses are clear. The mastoid air cells are well pneumatized. IMPRESSION: 1. There is no hemorrhage, mass effect, or evidence of acute territorial ischemia by CT criteria. 2. Unremarkable CT angiogram of the brain. 3. Unremarkable CT angiogram of the neck. 4. Bilateral nasal bone fractures. ACT 112: Negative or not required by law. Electronically signed by: Sachin Whitmore M.D. 01/06/2023 7:32 AM
--- NOTE | 2023-01-06 07:35 | CT Scan Report ---
Exam(s): CT FACIAL Without Contrast EXAM: CT Maxillofacial Without Intravenous Contrast CLINICAL HISTORY: Reason for exam: trauma. TECHNIQUE: Axial computed tomography images of the face without intravenous contrast. Automated exposure control was utilized for the study. A dose lowering technique was utilized adhering to the principles of ALARA. COMPARISON: No relevant prior studies available. FINDINGS: Bones/joints: No acute fracture. Chronic appearing nondisplaced nasal bone fracture on the left. Normal variant torus mandibularis. Soft tissues: Unremarkable. Orbits: Unremarkable. Sinuses: Unremarkable. No air-fluid levels. Dental: Streak artifact from dental amalgam limits evaluation of the adjacent structures. IMPRESSION: No acute facial bone fracture. Chronic appearing nondisplaced nasal bone fracture on the left. Electronically signed by: Gamal Merritt M.D. 01/06/23 07:34 AM
--- NOTE | 2023-01-06 08:05 | XRay Report ---
SINGLE VIEW CHEST CLINICAL HISTORY: Syncope FINDINGS: An AP, portable, upright chest radiograph is compared to study dated 06/27/2018. The heart i s enlarged note atherosclerotic calcification of the thoracic aorta. The pulmonary vasculature is non distended congested. Chronic interstitial thickening is similar to previous. The lungs and pleural sp aces are clear. No pneumothorax is seen. The skeletal structures are osteopenic. The bony thorax is g rossly intact. IMPRESSION: Cardiomegaly with no active disease in the chest. ACT 112: Negative or not required by law. Electronically signed by: Sachin Whitmore M.D. 01/06/2023 8:03 AM
[2023-01-06 09:03] LABS: Hematocrit (blood only) 37.6 % (42.0-52.0); Hemoglobin 13.3 g/dl (14.0-18.0)
[2023-01-06 09:22] LABS: Influenza A virus by PCR Negative (Neg); Influenza B virus by PCR Negative (Neg); RSV by PCR Negative (Neg); SARS CoV2 RNA(COVID-19) Ceph NEGATIVE (Negative)
--- NOTE | 2023-01-06 09:34 | History & Physical Report ---
Date of Service January 06, 2023 Assessment & Plan (1) Syncope: Plan: Syncope in a 72 yo male likely secondary to acute GI bleed due to NSAID use and duodenitis on imaging. Will be admitted to PCU on clinical research monitor. NPO Concern that his duodenitis may be a sign of upper GI bleed, especially with increased BUN, decrease in hemoglobin. Consulted GI. will place on protonix drip. will monitor h and h. check fecal occult blood. (2) Premature ventricular contractions (PVCs) (VPCs): Plan: Placed on telemonitor, PVCs noted on monitor. (3) Fracture closed, nasal bone: Plan: Patient is able to breath, will monitor. jagruti consider ENT consult vs outpatient followup (4) KELLY (obstructive sleep apnea): Plan: Patient will have CPAP at home (5) HTN (hypertension): Plan: will hold BP meds due to orthostasis. Plan DVT: scd History of Present Illness Chief Complaint: syncope Primary Care Provider: Baljeet Ribeiro MD 72 yo male with PMH as noted below presents to the ER after having a syncopal episode. Patient was recently in the ED the day prior for a syncopal episode. Patient was found to have duodenitis, with recent NSAID use. PAtient told to hold NSAIDs and was discharged. The following evening, Patient went to the bathroom and had a LOC and hit his head against the wall seemingly breaking his nose. IN the Ed, he was found to have orthostatic hypotension. His hemoglobin also appears to have decreased with a worsening BUN. Patient was called for an admission as there is a suspicion for an upper GI bleed.. Patient reports no recent BM. Allergies Allergy/AdvReac Type Severity Reaction Status Date / Time No Known Allergies Allergy Verified 12/14/22 09:51 Home Medications Medication Instructions Recorded Confirmed Type aspirin 81 mg tablet,delayed 81 mg PO HS 12/25/18 01/06/23 History release coenzyme Q10 100 mg capsule 100 mg PO BID 12/25/18 01/06/23 History docusate sodium 100 mg capsule 200 mg PO HS 12/25/18 01/06/23 History omega-3 acid ethyl esters 1 gram 1 g PO BID 12/25/18 01/06/23 History capsule loratadine 10 mg tablet (Claritin) 10 mg PO DAILY PRN sinus issues 12/26/18 01/06/23 History psyllium husk 0.52 gram capsule 2.6 g PO HS 12/26/18 01/06/23 History (Fiber-Caps (psyllium husk)) CPAP Machine #1 ea 03/13/20 12/14/22 Rx cholecalciferol (vitamin D3) 125 125 mcg PO QAM 12/13/21 01/06/23 History mcg (5,000 unit) capsule lorazepam 0.5 mg tablet 0.5 - 1 mg PO BID PRN Anxiety #30 02/22/22 01/06/23 Rx tabs amlodipine 2.5 mg tablet 2.5 mg PO QAM #90 tabs 12/05/22 01/06/23 Rx dutasteride 0.5 mg capsule 0.5 mg PO DAILY #90 caps 12/05/22 01/06/23 Rx tamsulosin 0.4 mg capsule 0.4 mg PO DAILY #90 caps 12/14/22 01/06/23 Rx Past Med/Surg History Medical History Anxiety BPH (benign prostatic hyperplasia) BPH with obstruction/lower urinary tract symptoms Elevated serum GGT level per pt Gallstones History of colon polyps Hypertension Neck pain HX STIFFNESS TO LEFT SIDE Osteoarthritis Pancreatitis hx of Sleep apnea cpap Surgical History History of cholecystectomy History of colonoscopy History of prostate biopsy x2--benign History of tonsillectomy and adenoidectomy History of tooth extraction History of wisdom tooth extraction Family History Grandmother (Maternal) Family history of diabetes mellitus Aunt Family history of diabetes mellitus Family/Other Cancer Hypertension Father Prostate cancer Other No family history of adverse response to anesthesia Social History Smoking Status: Never smoker Second Hand Exposure: No; Do You Dip or Chew Tobacco: No; Hx Alcohol Use: Yes Alcohol type: wine Hx Substance Use: No Preferred Language: Nigerian Communication Ability: Effective House Mover Helper Required: No Beliefs That Will Affect Care: None marital status: Current Living Situation: Spouse current occupational status: retired Other Information That Helps Us Care for You: No Feels Safe at Home: Yes Safety Concerns: Feels Safe At This Time Childhood Exposure to Second-Hand Smoke: Yes Dental Care, Regularly: Yes Physical Activity Frequency: Daily Seatbelt Use: always Sunscreen Use: Yes Assistive Devices: CPAP and Glasses Review of Systems Constitutional: no fever and no body aches Eyes: no blind spots Ear, Nose, Mouth, Throat: no ear pain Respiratory: no cough Cardiovascular: no chest pain and no chest pain with activity Gastrointestinal: no abdominal pain Genitourinary: no dysuria Musculoskeletal: no back pain Integumentary: no acne Neurologic: no gait abnormality Psychiatric: no behavioral changes Endocrine: + fatigue Hematologic / Lymphatic: no easy bleeding Allergy / Immunological: no GI upset with certain foods Physical Exam Constitutional: WD/WN, vitals as above (reddened nose) Eyes: PERRL, conjunctivae normal, anicteric sclerae ENMT: external ear and nose normal, oropharynx normal (except for a gabriele nose) Neck: trachea midline, no thyromegaly Respiratory: normal respiratory effort, lungs clear to auscultation Cardiovascular: RRR, no murmur, no edema Gastrointestinal (Abdomen): normal bowel sounds, soft, nontender, no hepatosplenomegaly Musculoskeletal: no cyanosis or clubbing, extremities motor strength 5/5 Extremities: + lower leg abnormality Left (varicose veins on left anterior leg) Skin: no rashes, warm and dry Neurologic: PERRL, EOMI, accommodation nl, no face palsy, no dysarthria Psychiatric: A+Ox3, euthymic affect Lymphatic: no cervical or axillary lymphadenopathy Results & Data Results & Data Vital Signs (Past 12 Hours) Vital Signs Temp Pulse Pulse Resp BP BP Pulse Ox 01/06/23 07:17 69 01/06/23 06:58 78 20 153/75 H 95 01/06/23 06:34 75 18 86/52 L 01/06/23 06:33 68 20 132/66 96 01/06/23 06:32 72 15 96 01/06/23 06:32 130/74 01/06/23 06:30 68 23 95 01/06/23 06:30 134/75 01/06/23 06:00 71 24 135/63 93 01/06/23 05:30 68 22 131/65 93 01/06/23 05:00 64 19 94 01/06/23 05:00 128/61 01/06/23 04:49 67 20 133/73 98 01/06/23 04:33 68 18 96 01/06/23 04:00 71 16 128/66 95 01/06/23 03:30 68 18 124/76 100 01/06/23 03:28 37.0 C 71 18 124/76 100 01/06/23 03:21 68 O2 Del Method 01/06/23 07:17 01/06/23 06:58 Room Air 01/06/23 06:34 01/06/23 06:33 01/06/23 06:32 01/06/23 06:32 01/06/23 06:30 01/06/23 06:30 01/06/23 06:00 01/06/23 05:30 01/06/23 05:00 01/06/23 05:00 01/06/23 04:49 01/06/23 04:33 01/06/23 04:00 01/06/23 03:30 01/06/23 03:28 Room Air 01/06/23 03:21 PG Care Time/CCT Total # of Minutes Spent Total Time Spent with Patient: Total time spent is greater than 50% in coordination of care (as documented) at patient's floor/unit and/or counseling patient: Coding Level of Care Code 41372 INT INP/OBS CARE 3/75MIN Diagnoses Syncope R55 Premature ventricular contractions (PVCs) (VPCs) I49.3 Fracture closed, nasal bone S02.2XXA KELLY (obstructive sleep apnea) G47.33 HTN (hypertension) I10
[2023-01-06] MEDS: PANTOprazole 40 MG in DEXTROSE 5% 100 ML IV SCH ×5 (11:08→21:20)
--- NOTE | 2023-01-06 13:12 | Gastrointestinal Consultation ---
Date of Consultation January 06, 2023 Assessment & Plan (1) Duodenitis: Duodenitis evident on CT scan, he has a good history for dyspepsia and/or NSAID induced gastritis/duodenitis. Not think that his syncope at this time is related to an acute GI bleed given the lack of GI output via rectum and/or emesis. It is concerning that he is had recurrent and repetitive syncopal type episodes during PT, he is having PVCs during examination however, sure that this would explain a true syncopal episode and this may intrude be dehydration on top of vasovagal given his lack of p.o. intake over the last several days. Recommendations 1. Okay with clear liquids 2. If any signs of GI bleeding please recall 3. IV PPI at the minimum twice daily, with support drip overnight out of caution 4. Dr. Mcwilliams and his team can evaluate for EGD during this admission after syncope has been evaluated History of Present Illness Reason for Consultation: Abnormal CT scan History of Present Illness This is a 72-year-old gentleman whom I am asked to see for an abnormal CT scan in the setting of syncope. He presented to the ER yesterday with dyspepsia type symptoms, underwent a CT scan showed concerning duodenitis, case was discussed with Dr. Mcwilliams who recommended twice daily PPI and then follow-up this coming week. During that time he was having episodes of pain without change in bowel habits and nausea, states that his last bowel movement was on at which time he had to take stool softeners and laxatives for, at that time it was brown and soft. He has been taking some NSAIDs but nothing since Sunday. He now states that his GI symptoms are entirely entirely resolved since 130 yesterday after 1 dose of antiacid in the ER. He went home from the emergency room at about 430, got up in the middle the night and was urinating during which time he felt very lightheaded he unfortunately staggered and fell causing an acute nasal fracture (reviewed with radiology that this was not a chronic but rather an acute) with fairly significant epistaxis. Laid down in bed and again due to his 's aphasia he called 911 was brought back into the emergency room. He hurt his shoulder back in October and since he has been going to PT when lying flat he has had several different episodes of lightheadedness possibly orthostasis. He denies any nausea vomiting melena hematemesis or hematochezia. His hemoglobin upon presentation yesterday seemingly was hemoconcentrated at greater than 17 and stable today at greater than 13. Is a mildly elevated BUN, had no bowel movements since . His blood pressure is stable and has been in the 130s to 150s, he is awake alert oriented no other concerns. Allergies Allergy/AdvReac Type Severity Reaction Status Date / Time No Known Allergies Allergy Verified 12/14/22 09:51 Home Medications Medication Instructions Recorded Confirmed Type aspirin 81 mg tablet,delayed 81 mg PO HS 12/25/18 01/06/23 History release coenzyme Q10 100 mg capsule 100 mg PO BID 12/25/18 01/06/23 History docusate sodium 100 mg capsule 200 mg PO HS 12/25/18 01/06/23 History omega-3 acid ethyl esters 1 gram 1 g PO BID 12/25/18 01/06/23 History capsule loratadine 10 mg tablet (Claritin) 10 mg PO DAILY PRN sinus issues 12/26/18 01/06/23 History psyllium husk 0.52 gram capsule 2.6 g PO HS 12/26/18 01/06/23 History (Fiber-Caps (psyllium husk)) CPAP Machine #1 ea 03/13/20 12/14/22 Rx cholecalciferol (vitamin D3) 125 125 mcg PO QAM 12/13/21 01/06/23 History mcg (5,000 unit) capsule lorazepam 0.5 mg tablet 0.5 - 1 mg PO BID PRN Anxiety #30 02/22/22 01/06/23 Rx tabs amlodipine 2.5 mg tablet 2.5 mg PO QAM #90 tabs 12/05/22 01/06/23 Rx dutasteride 0.5 mg capsule 0.5 mg PO DAILY #90 caps 12/05/22 01/06/23 Rx tamsulosin 0.4 mg capsule 0.4 mg PO DAILY #90 caps 12/14/22 01/06/23 Rx Patient History Medical History Anxiety BPH (benign prostatic hyperplasia) BPH with obstruction/lower urinary tract symptoms Elevated serum GGT level per pt Gallstones History of colon polyps Hypertension Neck pain HX STIFFNESS TO LEFT SIDE Osteoarthritis Pancreatitis hx of Sleep apnea cpap Surgical History History of cholecystectomy History of colonoscopy History of prostate biopsy x2--benign History of tonsillectomy and adenoidectomy History of tooth extraction History of wisdom tooth extraction Family History Grandmother (Maternal) Family history of diabetes mellitus Aunt Family history of diabetes mellitus Family/Other Cancer Hypertension Father Prostate cancer Other No family history of adverse response to anesthesia Social History Smoking Status: Never smoker Second Hand Exposure: No; Do You Dip or Chew Tobacco: No; Hx Alcohol Use: Yes Alcohol type: beer and wine Hx Substance Use: No Preferred Language: Telugu Communication Ability: Effective [employer] Technician Required: No Beliefs That Will Affect Care: None marital status: Current Living Situation: Spouse current occupational status: retired Feels Safe at Home: Yes Childhood Exposure to Second-Hand Smoke: Yes Dental Care, Regularly: Yes Physical Activity Frequency: Daily Seatbelt Use: always Sunscreen Use: Yes Assistive Devices: CPAP and Glasses Review of Systems Review of Systems: All systems reviewed & are unremarkable except as noted in HPI & below Physical Exam Constitutional: WD/WN, vitals as above Cardiovascular: RRR, no murmur, no edema Gastrointestinal (Abdomen): normal bowel sounds, soft, nontender, no hep atosplenomegaly Results & Data Vital Signs (Past 12 Hours) Vital Signs Temp Pulse Pulse Resp BP BP Pulse Ox 01/06/23 12:46 140/73 01/06/23 12:46 72 22 95 01/06/23 12:30 63 22 01/06/23 12:00 62 20 98 01/06/23 11:50 64 01/06/23 11:30 69 19 98 01/06/23 11:00 68 20 95 01/06/23 10:30 68 15 01/06/23 10:30 158/69 H 01/06/23 10:11 69 14 97 01/06/23 10:11 163/69 H 01/06/23 10:01 77 21 96 01/06/23 10:01 142/70 H 01/06/23 10:00 80 20 95 01/06/23 09:30 68 16 96 01/06/23 09:30 139/73 01/06/23 09:15 144/64 H 01/06/23 09:15 73 15 95 01/06/23 09:00 70 19 01/06/23 09:00 147/66 H 01/06/23 08:30 72 21 96 01/06/23 08:30 124/57 L 01/06/23 08:00 70 16 97 01/06/23 08:00 136/81 01/06/23 07:30 67 22 94 01/06/23 07:30 138/67 01/06/23 07:00 66 17 95 01/06/23 07:00 166/66 H 01/06/23 06:53 71 20 96 01/06/23 06:53 153/73 H 01/06/23 09:15 78 20 144/64 H 95 01/06/23 10:11 68 20 163/69 H 96 01/06/23 07:17 69 01/06/23 06:58 78 20 153/75 H 95 01/06/23 06:34 75 18 86/52 L 01/06/23 06:33 68 20 132/66 96 01/06/23 06:32 72 15 96 01/06/23 06:32 130/74 01/06/23 06:30 68 23 95 01/06/23 06:30 134/75 01/06/23 06:00 71 24 135/63 93 01/06/23 05:30 68 22 131/65 93 01/06/23 05:00 64 19 94 01/06/23 05:00 128/61 01/06/23 04:49 67 20 133/73 98 01/06/23 04:33 68 18 96 01/06/23 04:00 71 16 128/66 95 01/06/23 03:30 68 18 124/76 100 01/06/23 03:28 37.0 C 71 18 124/76 100 01/06/23 03:21 68 O2 Del Method 01/06/23 12:46 01/06/23 12:46 Room Air 01/06/23 12:30 01/06/23 12:00 01/06/23 11:50 01/06/23 11:30 Room Air 01/06/23 11:00 01/06/23 10:30 01/06/23 10:30 01/06/23 10:11 01/06/23 10:11 01/06/23 10:01 01/06/23 10:01 01/06/23 10:00 01/06/23 09:30 01/06/23 09:30 01/06/23 09:15 01/06/23 09:15 01/06/23 09:00 01/06/23 09:00 01/06/23 08:30 01/06/23 08:30 01/06/23 08:00 01/06/23 08:00 01/06/23 07:30 01/06/23 07:30 01/06/23 07:00 01/06/23 07:00 01/06/23 06:53 01/06/23 06:53 01/06/23 09:15 Room Air 01/06/23 10:11 Room Air 01/06/23 07:17 01/06/23 06:58 Room Air 01/06/23 06:34 01/06/23 06:33 01/06/23 06:32 01/06/23 06:32 01/06/23 06:30 01/06/23 06:30 01/06/23 06:00 01/06/23 05:30 01/06/23 05:00 01/06/23 05:00 01/06/23 04:49 01/06/23 04:33 01/06/23 04:00 01/06/23 03:30 01/06/23 03:28 Room Air 01/06/23 03:21
--- NOTE | 2023-01-06 13:19 | Electrocardiogram Report ---
Test Reason : Blood Pressure : / mmHG Vent. Rate : 078 BPM Atrial Rate : 066 BPM P-R Int : 178 ms QRS Dur : 102 ms QT Int : 394 ms P-R-T Axes : 050 -05 031 degrees QTc Int : 449 ms Sinus rhythm with sinus arrhythmia with occasional Premature ventricular complexes Otherwise normal ECG When compared with ECG of 05-JAN-2023 12:03, Premature ventricular complexes are now Present QT has lengthened Confirmed by Baljeet Martinez ([id number]) on 01/06/2023 1:18:41 PM Referred By: REFERRED SELF Confirmed By:Baljeet Martinez
[2023-01-06 18:23] LABS: Hematocrit (blood only) 38.3 % (42.0-52.0); Hemoglobin 13.5 g/dl (14.0-18.0)
[2023-01-07 01:06] LABS: Hematocrit (blood only) 34.7 % (42.0-52.0); Hemoglobin 12.1 g/dl (14.0-18.0)
[2023-01-07] MEDS: PANTOprazole 40 MG in DEXTROSE 5% 100 ML IV SCH ×5 (02:20→22:48)
[2023-01-07] MEDS: SODIUM CHLORIDE 0.9% 1000ML 1,000 ML IV SCH ×3 (04:29→20:37)
--- NOTE | 2023-01-07 10:22 | Gastroenterology Progress Note ---
Date of Service January 07, 2023 Assessment & Plan (1) Duodenitis: Plan: Duodenitis evident on CT scan, he has a good history for dyspepsia and/or NSAID induced gastritis/duodenitis. Not think that his syncope at this time is related to an acute GI bleed given the lack of GI output via rectum and/or emesis. It is concerning that he is had recurrent and repetitive syncopal type episodes during PT, he is having PVCs during examination however, sure that this would explain a true syncopal episode and this may intrude be dehydration on top of vasovagal given his lack of p.o. intake over the last several days. Recommendations 1. Okay with clear liquids 2. N.p.o. after midnight 3. EGD tomorrow with Case Admission and Anticipated Discharge Date Admission Date: January 06, 2023 Subjective Noted some bloating yesterday, had a brown maybe dark bowel movement but no overt signs of bleeding. No complaints this morning Physical Exam Constitutional: WD/WN, vitals as above Cardiovascular: RRR, no murmur, no edema Gastrointestinal (Abdomen): normal bowel sounds, soft, nontender, no hepatosplenomegaly Results & Data Vital Signs (Past 12 Hours) Vital Signs Temp Pulse Pulse Resp BP Pulse Ox O2 Del Method 01/07/23 08:02 36.9 C 69 19 155/80 H 96 Room Air 01/07/23 00:00 68 01/07/23 03:19 36.9 C 64 20 147/77 H 97 Room Air 01/06/23 22:35 36.8 C 7 L 14 171/75 H 95 Room Air
[2023-01-07 16:49] LABS: Hematocrit (blood only) 37.1 % (42.0-52.0); Hemoglobin 13.4 g/dl (14.0-18.0)
--- NOTE | 2023-01-07 22:21 | Hospitalist Progress Note ---
Date of Service January 07, 2023 Assessment & Plan (1) Syncope: Plan: Syncope in a 72 yo male likely secondary to acute GI bleed due to NSAID use and duodenitis on imaging. Will be admitted to PCU on bus driver/monitor. NPO Concern that his duodenitis may be a sign of upper GI bleed, especially with increased BUN, decrease in hemoglobin. Consulted GI. will place on protonix drip. will monitor h and h. Plan for EGD on Sunday. (2) Premature ventricular contractions (PVCs) (VPCs): Plan: Placed on telemonitor, PVCs noted on monitor. (3) Fracture closed, nasal bone: Plan: Patient is able to breath, will monitor. jagruti consider ENT consult vs outpatient followup (4) KELLY (obstructive sleep apnea): Plan: Patient will have CPAP at home (5) HTN (hypertension): Plan: will hold BP meds due to orthostasis. Plan DVT: scd Admission and Anticipated Discharge Date Admission Date: January 06, 2023 Subjective 72 yo male reports no new symptoms. Review of Systems Review of Systems: All systems reviewed & are unremarkable except as noted in HPI & below Physical Exam Constitutional: WD/WN, vitals as above (reddened nose) Eyes: PERRL, conjunctivae normal, anicteric sclerae ENMT: external ear and nose normal, oropharynx normal (except for a gabriele nose) Neck: trachea midline, no thyromegaly Respiratory: normal respiratory effort, lungs clear to auscultation Cardiovascular: RRR, no murmur, no edema Gastrointestinal (Abdomen): normal bowel sounds, soft, nontender, no hepatosplenomegaly Musculoskeletal: no cyanosis or clubbing, extremities motor strength 5/5 Extremities: + lower leg abnormality Skin: no rashes, warm and dry Neurologic: PERRL, EOMI, accommodation nl, no face palsy, no dysarthria Psychiatric: A+Ox3, euthymic affect Lymphatic: no cervical or axillary lymphadenopathy Results & Data Results & Data Vital Signs (Past 12 Hours) Vital Signs Temp Pulse Resp BP Pulse Ox O2 Del Method 01/07/23 19:18 174/75 H 01/07/23 19:13 36.8 C 78 18 172/80 H 96 Room Air 01/07/23 16:46 36.8 C 72 19 164/75 H 95 Room Air 01/07/23 11:57 36.8 C 67 19 154/79 H 98 Room Air PG Care Time/CCT Total # of Minutes Spent Total Time Spent with Patient: Total time spent is greater than 50% in coordination of care (as documented) at patient's floor/unit and/or counseling patient: Coding Level of Care Code 26708 SUB INP/OBS CARE 2/35MIN Diagnoses Syncope R55 Premature ventricular contractions (PVCs) (VPCs) I49.3 Fracture closed, nasal bone S02.2XXA KELLY (obstructive sleep apnea) G47.33 HTN (hypertension) I10
[2023-01-08] MEDS: SODIUM CHLORIDE 0.9% 1000ML 1,000 ML IV SCH ×3 (03:35→19:32)
[2023-01-08] MEDS: PANTOprazole 40 MG in DEXTROSE 5% 100 ML IV SCH ×4 (03:35→19:32)
[2023-01-08 06:36] LABS: Hemoglobin 12.2 g/dl (14.0-18.0); Mean Corpuscular Hemoglobin 31.4 pg (25.0-34.0); Mean Corpuscular Hgb Conc 34.9 g/dL (32.0-36.0); Mean Corpuscular Volume 90.2 fL (80.0-100.0); Mean Platelet Volume 10.5 fL (9.4-12.4); Platelet Count 190 K/uL (130-400); RDW Coefficient of Variation 12.6 % (11.5-14.5); RDW Standard Deviation 41.2 fL (36.4-46.3); Red Blood Count 3.88 M/uL (4.70-6.10); White Blood Count 5.84 K/ul (4.8-10.8)
[2023-01-08 06:51] LABS: BUN Creatinine Ratio 10.8 (10-20); Calcium 8.5 mg/dl (8.6-10.3); Creatinine Clr Calc Pharmacy 65.2 ml/min; Est GFR (African American) 93.4 ml/min; Est GFR (Non-African American) 80.6 ml/min; Potassium 3.5 mmol/L (3.5-5.1)
--- NOTE | 2023-01-08 09:35 | History & Physical Bridge Note ---
Date of Service January 08, 2023 History & Physical Bridge Note I have examined the patient, reviewed the History & Physical and in the interval since the performance of the History & Physical I have noted the following changes of clinical significance: no changes noted. He notes a black stool yesterday, but none today. Patient notes some anxiety surrounding the procedure due to a nasal fracture recently. He is presently on a PPI gtt. Keep NPO & proceed with EGD this afternoon.
--- NOTE | 2023-01-08 15:28 | Anesthesiology Consultation ---
Date of Service January 08, 2023 Assessment & Plan Chart Review Chart Review: Acceptable Risk for Surgery and Patient NOT seen in Pre Admission Testing ASA ASA2 Proposed Anesthesia Anesthesia Type: General Risk / Benefits Reviewed With: PT / POA / Parent / Guardian, Accepts Plan and Informed Consent Obtained History Surgery Operation Date: 01/08/23 16:35 Proposed Procedures p Esophagogastroduodenoscopy Dr. Nia Kramer MD Height/Weight Height: 5 ft 7 in Weight: 77.5 kg Allergies Allergy/AdvReac Type Severity Reaction Status Date / Time No Known Allergies Allergy Verified 12/14/22 09:51 Medications Home Medications Medication Instructions Recorded Confirmed Last Taken aspirin 81 mg tablet,delayed 81 mg PO HS 12/25/18 01/06/23 01/05/23 release coenzyme Q10 100 mg capsule 100 mg PO BID 12/25/18 01/06/23 01/05/23 docusate sodium 100 mg capsule 200 mg PO HS 12/25/18 01/06/23 01/05/23 omega-3 acid ethyl esters 1 gram 1 g PO BID 12/25/18 01/06/23 01/05/23 capsule loratadine 10 mg tablet (Claritin) 10 mg PO DAILY PRN sinus issues 12/26/18 01/06/23 01/09/22 psyllium husk 0.52 gram capsule 2.6 g PO HS 12/26/18 01/06/23 01/05/23 (Fiber-Caps (psyllium husk)) CPAP Machine #1 [id number] 03/13/20 12/14/22 Unknown cholecalciferol (vitamin D3) 125 125 mcg PO QAM 12/13/21 01/06/23 01/05/23 mcg (5,000 unit) capsule lorazepam 0.5 mg tablet 0.5 - 1 mg PO BID PRN Anxiety #30 02/22/22 01/06/23 Unknown tabs amlodipine 2.5 mg tablet 2.5 mg PO QAM #90 tabs 12/05/22 01/06/23 01/05/23 dutasteride 0.5 mg capsule 0.5 mg PO DAILY #90 caps 12/05/22 01/06/23 01/05/23 tamsulosin 0.4 mg capsule 0.4 mg PO DAILY #90 caps 12/14/22 01/06/23 01/05/23 Active Medications Generic Name Dose Route Start Last Admin Trade Name Horacio PRN Reason Stop Dose Admin Sodium Chloride 1,000 mls @ 125 mls/hr 01/06/23 03:45 01/08/23 03:35 Nss 1000ml IV 02/05/23 03:44 125 mls/hr .Q8H ELIZABETH Administration Pantoprazole Sodium 40 mg/ 100 mls @ 20 mls/hr 01/06/23 16:00 01/08/23 03:35 Dextrose IV 02/05/23 15:59 8 mg/hr Q5H ELIZABETH 20 mls/hr Administration 8 MG/HR Past Medical History Medical History Anxiety BPH (benign prostatic hyperplasia) BPH with obstruction/lower urinary tract symptoms Elevated serum GGT level per pt Gallstones History of colon polyps Hypertension Neck pain HX STIFFNESS TO LEFT SIDE Osteoarthritis Pancreatitis hx of Sleep apnea cpap Exercise / Class Metabolic Activity II 4-5 Yardwork/Stairs/Walk up hill Past Family History Family History Grandmother (Maternal) Family history of diabetes mellitus Aunt Family history of diabetes mellitus Family/Other Cancer Hypertension Father Prostate cancer Other No family history of adverse response to anesthesia Past Surgical History Surgical History History of cholecystectomy History of colonoscopy History of prostate biopsy x2--benign History of tonsillectomy and adenoidectomy History of tooth extraction History of wisdom tooth extraction Past Anesthesia History No Hx of Anesthesia Complications and No Family Hx of Anesthesia Complications History of PONV No Hx of PONV and No Hx of Motion Sickness Social History Smoking Status: Never smoker Do You Dip or Chew Tobacco: No Hx Alcohol Use: Yes Alcohol type: wine alcohol intake frequency: a few times a week Hx Substance Use: No substance use type: does not use Review of Systems denies fever/cough/ colds/ chest pain/ SOB/ KELLY denies KELLY Physical Exam Vital Signs Last Vital Signs Temp 36.8 C 01/08/23 10:58 Pulse 67 01/08/23 10:58 Resp 22 01/08/23 10:58 BP 167/88 H 01/08/23 10:58 Pulse Ox 97 01/08/23 10:58 O2 Del Method Room Air 01/08/23 10:58 ENMT Mouth: no TMJ abnormality and no dentition abnormality Thyromental Distance: > or= 3.5 Finger Breadths Mallampati Class: II Neck neck extension not limited Respiratory normal respiratory effort; no respiratory distress Auscultation: lungs clear to auscultation bilaterally Cardiovascular Rate/Rhythm: regular rate and regular rhythm Neurologic moves all extremities Psychiatric Orientation: alert and oriented x 3 Testing Laboratory Results 01/08/23 05:40 01/08/23 05:40 Urine Color Yellow 01/06/23 Unknown Urine Appearance Clear (Clear) 01/06/23 Unknown Urine pH 5.0 (4.5-7.5) 01/06/23 Unknown Ur Specific [place] > 1.045 (1.000-1.030) H 01/06/23 Unknown Urine Protein Negative (Negative) 01/06/23 Unknown Urine Glucose (UA) Negative (Negative) 01/06/23 Unknown Urine Ketones Trace (Negative) H 01/06/23 Unknown Urine Nitrite Negative (Negative) 01/06/23 Unknown Ur Leukocyte Esterase Negative (Negative) 01/06/23 Unknown
[2023-01-08] MEDS ORDERED: LIDOCAINE 2% 2 ML VIAL/AMP(20MG/ML) INFIL ONE (15:49)
[2023-01-08] MEDS ORDERED: PROPOFOL IV EMULSION 10 MG/ML 20 ML VIAL IV ONE (15:49)
--- NOTE | 2023-01-08 16:07 | GI REPORT ---
Patient Name: Giovanni Cole Procedure Date: 01/08/2023 3:27 PM Date of : 1950 Admit Type: Inpatient Age: 72 Gender: Male Attending MD: Clay Kramer MD, Procedure: Upper GI endoscopy Providers: Clay Kramer MD Referring MD: Referred Self Indications: Melena Medicines: Monitored Anesthesia Care Complications: No immediate complications. Estimated blood loss: None. Estimated Blood Loss: Estimated blood loss: none. Procedure: Pre-Anesthesia Assessment: - Prior Anticoagulants: The patient has taken no anticoagulant or antiplatelet agents except for NSAID medication. - ASA Grade Assessment: III - A patient with severe systemic disease. After obtaining informed consent, the endoscope was passed under direct vision. Throughout the procedure, the patient's blood pressure, pulse, and oxygen saturations were monitored continuously. The Endoscope was introduced through the mouth, and advanced to the second part of duodenum. The upper GI endoscopy was accomplished without difficulty. The patient tolerated the procedure well. Findings: The examined esophagus was normal. Diffuse mild inflammation characterized by erosions and erythema was found in the stomach. Biopsies were taken with a cold forceps for Helicobacter pylori testing. Estimated blood loss: none. One non-bleeding cratered duodenal ulcer with no stigmata of bleeding was found in the first portion of the duodenum at the sweep along with duodenitis. Biopsies for histology were taken with a cold forceps for evaluation of celiac disease. Estimated blood loss: none. Impression: - Normal esophagus. - Gastritis. Biopsied. - Non-bleeding duodenal ulcer with no stigmata of bleeding. Biopsied. Recommendation: - Return patient to [facility] for ongoing care. - Advance diet as tolerated today. - Await pathology results. -protonix 40 mg daily before breakfast for 3 months -avoid NSAIDS Clay Kramer MD 01/08/2023 4:07:09 PM This report has been signed electronically. Note Initiated On: 01/08/2023 3:27 PM Number of Addenda: 0 I attest to the content of the Intraoperative Record and orders documented therein, exceptions below {[id number]}
--- NOTE | 2023-01-08 16:25 | Anesthesiology Progress Note ---
Date of Service January 08, 2023 Anesthesia Post Procedure Vital Signs Vital Signs: Temp Pulse Pulse Resp BP Pulse Ox Pulse Ox 01/08/23 16:07 64 14 110/65 97 01/08/23 15:27 36.8 C 52 L 16 190/75 H 98 01/08/23 10:58 36.8 C 67 22 167/88 H 97 01/08/23 08:00 96 01/08/23 08:01 36.7 C 69 20 154/82 H 97 01/08/23 00:00 81 01/08/23 02:59 36.8 C 60 18 151/83 H 95 01/07/23 23:11 36.8 C 77 18 163/82 H 95 01/07/23 19:18 174/75 H 01/07/23 19:13 36.8 C 78 18 172/80 H 96 01/07/23 16:46 36.8 C 72 19 164/75 H 95 O2 Del Method 01/08/23 16:07 Room Air 01/08/23 15:27 Room Air 01/08/23 10:58 Room Air 01/08/23 08:00 01/08/23 08:01 Room Air 01/08/23 00:00 01/08/23 02:59 Room Air 01/07/23 23:11 Room Air 01/07/23 19:18 01/07/23 19:13 Room Air 01/07/23 16:46 Room Air Transfer of Care Handoff Completed per policy Notes Mental Status: alert / awake / arousable and participated in evaluation Patient Amnestic to Procedure: Yes Nausea / Vomiting: adequately controlled Pain: adequately controlled Airway Patency, RR, SpO2: stable & adequate BP & HR: stable & adequate Hydration State: stable & adequate Anesthetic Complications: no major complications apparent and Pt Satisfied with anesthetic care
--- NOTE | 2023-01-08 18:15 | Discharge Summary ---
Date of Service January 08, 2023 Admission HPI Per Admitting Provider 72 yo male with PMH as noted below presents to the ER after having a syncopal episode. Patient was recently in the ED the day prior for a syncopal episode. Patient was found to have duodenitis, with recent NSAID use. PAtient told to hold NSAIDs and was discharged. The following evening, Patient went to the bathroom and had a LOC and hit his head against the wall seemingly breaking his nose. IN the Ed, he was found to have orthostatic hypotension. His hemoglobin also appears to have decreased with a worsening BUN. Patient was called for an admission as there is a suspicion for an upper GI bleed.. Patient reports no recent BM. Principal Diagnosis acute blood loss anemia due to GI bleed Discharge Exam Constitutional WD/WN, vitals as above (reddened nose) Eyes PERRL, conjunctivae normal, anicteric sclerae ENMT external ear and nose normal, oropharynx normal (except for a gabriele nose) Neck trachea midline, no thyromegaly Respiratory normal respiratory effort, lungs clear to auscultation Cardiovascular RRR, no murmur, no edema Gastrointestinal (Abdomen) normal bowel sounds, soft, nontender, no hepatosplenomegaly Musculoskeletal no cyanosis or clubbing, extremities motor strength 5/5 Extremities: + lower leg abnormality Skin no rashes, warm and dry Neurologic PERRL, EOMI, accommodation nl, no face palsy, no dysarthria Psychiatric A+Ox3, euthymic affect Lymphatic no cervical or axillary lymphadenopathy Discharge Data Allergies Allergy/AdvReac Type Severity Reaction Status Date / Time No Known Allergies Allergy Verified 01/08/23 15:30 Consultations 01/06/23 08:09 ED Decision to Admit Stat 01/06/23 09:20 Consult Gastroenterology Routine 01/08/23 13:55 Consult Cardiology Routine Procedures Performed Operation Date: 01/08/23 16:35 Actual Procedures p EGD Biopsy Cytology - Clay Kramer MD Ordered Studies 01/06/23 03:43 CT angio head w con Stat CT angio neck with con Stat CT facial bones wo con Stat CT head/brain wo con Stat Hospital Course (1) Syncope: Syncope in a 72 yo male likely secondary to acute GI bleed due to NSAID use and duodenitis on imaging. Will be admitted to PCU on underwear hemmer: noted PVC, however discussion with cardiology did not show any correlation. Consult cancelled. Concern that his duodenitis may be a sign of upper GI bleed, Upper endoscopy showed a non bleeding duodenal ulcer. Hemoglobin decreased over course of hospital stay, howver patient symptomatically improved. Appreciate input from GI. Patient will be discharged on carafate and protonix. will close followup with PCP in 1 week. orthostatic blood pressure improved during hospitalization, very pronounced on admission, non existent at discharge (2) Premature ventricular contractions (PVCs) (VPCs): Placed on telemonitor, PVCs noted on monitor. (3) Fracture closed, nasal bone: Patient is able to breath, will monitor. ENT outpatient followup (4) KELLY (obstructive sleep apnea): Patient will have CPAP at home (5) HTN (hypertension): will hold BP meds due to orthostasis. Plan DVT: scd Total Time Total Time Spent Total Time Spent (In Minutes): 32 Discharge Plan Discharge Items Patient Disposition: Home - Self-Care Reason For Visit: SYNCOPE LIKELY GI BLEED Discharge Diagnosis: GI bleed Activity: Resume your previous activity Non-emergency contact: Primary Care Provider Call non-emergency contact if: you have any medication questions Follow-up/Referrals: Sadie Donnelly PA-C [Physician Application Programmer Analyst] - 01/12/23 3:00 pm Diet: Regular Addtl Attending Provider Instructions: Will recommend holding the amlodipine until your PCP followup. Continue to hold baby aspirin as well. Hold the naprosyn. Start the protonix 40 mg PO BID and the carafate. recommend followup with your PCP in 1 week. Will schedule a followup with ENT Pending Studies at Discharge: No Stand-Alone Forms: My [facility], Smoking Cessation Medications and DC Order Prescriptions: New pantoprazole [Protonix] 40 mg tablet,delayed release (DR/EC) 40 mg PO BID Qty: 60 0RF sucralfate [Carafate] 1 gram tablet 1 g PO ACHS 28 Days Qty: 112 0RF Continued (DME) CPAP Machine Misc See Rx Instructions .MEDSUPPLY Qty: 1 0RF Rx Instructions: NEW CPAP 8CM. HEATED HUMIDITY. CPAP SUPPLIES NEEDED. GATO dutasteride 0.5 mg capsule 0.5 mg PO DAILY Qty: 90 3RF docusate sodium 100 mg capsule 200 mg PO HS omega-3 acid ethyl esters 1 gram capsule 1 g PO BID coenzyme Q10 100 mg capsule 100 mg PO BID cholecalciferol (vitamin D3) 125 mcg (5,000 unit) capsule 125 mcg PO QAM lorazepam 0.5 mg tablet 0.5 - 1 mg PO BID PRN (Reason: Anxiety) Qty: 30 0RF tamsulosin 0.4 mg capsule 0.4 mg PO DAILY Qty: 90 3RF psyllium husk [Fiber-Caps (psyllium husk)] 0.52 gram Capsule 2.6 g PO HS loratadine [Claritin] 10 mg Tablet 10 mg PO DAILY PRN (Reason: sinus issues) Discontinued amlodipine 2.5 mg tablet 2.5 mg PO QAM Qty: 90 3RF Rx Instructions: Patient stated he was told by the doctor today that he is suppose to hold the amlodipine until told otherwise. aspirin 81 mg tablet,delayed release (DR/EC) 81 mg PO HS Rx Instructions: Patient stated he was told by a doctor to stop taking the aspirin 81mg until further notice. Discharge Orders: Discharge Order (Routine); Ordered 01/08/23 Ordered By: Ethan Meza Admission Data Admit Date/Time: 01/06/23 08:15 Attending Provider: Ethan Meza Admit Provider: Ethan Meza Primary Care Provider: Baljeet Ribeiro Other Providers: Ethan Meza ; Shon Pritchett Other Interventions: Discharge Summary Assessment (RN) Last Done: 01/08/23 18:32 Coding Level of Care Code 23187 INP/OBS DISCH >30 MIN Diagnoses Syncope R55 Premature ventricular contractions (PVCs) (VPCs) I49.3 Fracture closed, nasal bone S02.2XXA KELLY (obstructive sleep apnea) G47.33 HTN (hypertension) I10
== END 2023-01-08 19:25 | disposition home or self-care (01) | DRG 378 ==
LOC: ED 03:13 → 2E 08:15